=== PATIENT | male | born 1960 | race Caucasian/White ===

== ENCOUNTER → 2022-10-03 16:59 | Outpatient (CLI) | payer BC, SELFPAY ==
--- NOTE | ~2022-10-03 | XR_ITS ---
EXAMINATION: XR hand BI arthritis min 3V DATE: 10/03/2022 17:27 INDICATION: Primary osteoarthritis, right hand. TECHNIQUE: 3 views of right hand and 3 views of left hand were obtained. COMPARISON: None. FINDINGS: RIGHT HAND: Bone alignment is normal. No fracture. There is mild osteoarthritis of first carpometacar pal joint and first, second, and fourth metacarpophalangeal joints. There is moderate osteoarthritis of third metacarpophalangeal joint. There is mild osteoarthritis of most of the interphalangeal joint s. LEFT HAND: Bone alignment is normal. No acute fracture. 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 There is moderate osteoarthritis of first carpometacarpal joint and second and third metacarpophalangeal joints. There is mild osteoarthritis of the other metacarpop halangeal joints and most of the interphalangeal joints. There is moderate osteoarthritis of first in terphalangeal joint. IMPRESSION: 1. Polyarticular osteoarthritis. Reviewed, dictated and finalized at location A. [facility] [employer]
== END ==
PROVIDERS: PCP Family Medicine; Visit Provider Family Medicine
DX: M19.041 Primary osteoarthritis, right hand (principal)
CPT/HCPCS: 73130

== ENCOUNTER 2022-12-23 00:19 | Day surgery (SDC) | payer BC, SELFPAY ==
[2022-12-14 13:03] VITALS: BMI 29.2
[2022-12-23 07:30] VITALS: BMI 31.4
[2022-12-23] MEDS: LACTATED RINGERS 1,000 ML 150 ML IV CONT (07:49)
--- NOTE | 2022-12-23 07:56 | WPDANESEPPF ---
Anes - Initial Pre Proc Eval Procedure: Operation Date: 12/23/22 08:30 Proposed Procedures p Screening Colonoscopy - Kamran Coyle MD Date/Time: 12/23/22 07:56 Surgeon: Kamran Coyle MD Pre Op Diagnosis: neoplasm screening Patient Data Age: 62 Gender: M Height: 1.75 m Weight: 96.7 kg Allergies Allergy/AdvReac Type Severity Reaction Status Date / Time No Known Allergies Allergy Verified 12/14/22 12:59 Home Medications Medication Instructions Recorded Confirmed Type meloxicam 15 mg tablet 15 mg PO DAILY PRN pain #30 tabs 09/29/21 12/14/22 Rx alprazolam 0.25 mg tablet 0.25 mg PO TID PRN anxiety #90 tabs 05/30/22 12/14/22 Rx amlodipine 10 mg tablet 10 mg PO DAILY #90 tabs 06/28/22 12/14/22 Rx lisinopril 20 mg tablet 20 mg PO . q.a.m. #30 tabs 10/03/22 12/14/22 Rx venlafaxine 75 mg capsule,extended 75 mg PO QAM #30 caps 10/03/22 12/14/22 Rx release 24 hr (Effexor XR) sodium,potassium,mag sulfates 17.5 See Rx Instructions PO .COMPLEX 11/23/22 12/14/22 Rx gram-3.13 gram-1.6 gram oral soln #354 mL (Suprep Bowel Prep Kit) Patient hx anesthesia problems: none Family hx anesthesia problems: none Results Review: All pre-operative results and documents have been reviewed as part of the pre-operative evaluation. [facility] Past Medical History Medical History (Updated 10/25/22 @ 07:56 by Tyree Lynne MD) Abnormal fasting glucose (11/23/20) Blood sugar 115 on 11/23/2020. Glucose 92 with hemoglobin A1c 5.2 on 10/15/2022. Arthritis of both hands x-ray of both hands on 10/03/2022 with [id number] diffuse osteoarthritis. Labs on 10/15/2022 with PRABHAKAR negative, RF less than 14, CCP less than 16, uric acid 5.7. No evidence of inflammatory arthritis. BMI 29.0-29.9,adult BMI 30.0-30.9,adult BMI 31.0-31.9,adult Carpal tunnel syndrome, right Chronic anxiety Chronic depression Chronic pain of right knee Colon cancer screening patient reports normal colonoscopy around age 51 with recheck in 10 years. Encounter for prostate cancer screening PSA 1.8 on 10/15/2022. Encounter for wellness examination in adult Essential (primary) hypertension Male erectile dysfunction, unspecified Obesity (BMI 30.0-34.9) Obstructive sleep apnea on CPAP Osteoarthritis of right hand Protein in urine Urinalysis normal on 10/15/2022. Seasonal allergic rhinitis Tobacco use disorder, continuous Vitamin B12 deficiency anemia (09/18/21) level low at 312 with goal greater than 400 on 09/18/2021 Social History Social History (Updated 10/03/22 @ 16:15 by Britney Chinchilla MA) Smoking packs per day: 0.5 Smoking cigarettes per day: 10.0 Years smoked: 30 Smoking pack-years: 15.00 Smoking status: Current every day smoker Tobacco type: cigarettes Alcohol intake: current Drinks per week: 12 Substance use: never Substance use type: does not use Lack of Transportation: No Lack of Food: Never True Current Housing: I Have Housing Concerned About Future Housing: No Difficulty Paying Gas/Electric Bills: No Difficulty Paying for Meds: No Currently Unemployed: No Education: High School Diploma/GED Difficulty w/ Childcare or Family Care: No Living arrangements: other Additional living arrangements comments: With guero Gregory Final PreProcedure Day of Procedure 12/23/22 07:56 Patient weight: obese Heart: regular rate and rhythm Lungs: clear to auscultation Airway: Mallampati scale class II Neurological: alert and oriented Last oral intake: >/= 8 hours ASA classification: III Emergent: no Anesthetic plan: proceed Anesthesia type and monitoring: general GIVS and standard monitoring Results Review: All pre-operative results and documents have been reviewed as part of the pre-operative evaluation. Informed Consent: The patient's anesthetic plan and its attendant risks and benefits were discussed with the patient/family/POA. Questions were solicited and answers provided
--- NOTE | 2022-12-23 08:05 | PM.HPGS ---
History of Present Illness History of Present Illness Consent: Risks, benefits, and alternatives have been discussed and questions answered. Patient agrees to proceed with procedure. Chief complaint: neoplasm screening Narrative: Wood Smiley is a 62 year old male Presents for screening colonoscopy. Patient's current weight appetite and bowel movements are normal. Patient denies abdominal pain. He has had no bleeding. family history is noncontributory. Patient presents today for screening exam. Previous exam 10 years ago was unremarkable. Review of Systems Review of Systems: Review of systems noncontributory. [facility] Past Medical History Medical History (Updated 10/25/22 @ 07:56 by Tyree Lynne MD) Abnormal fasting glucose (11/23/20) Blood sugar 115 on 11/23/2020. Glucose 92 with hemoglobin A1c 5.2 on 10/15/2022. Arthritis of both hands x-ray of both hands on 10/03/2022 with [id number] diffuse osteoarthritis. Labs on 10/15/2022 with PRABHAKAR negative, RF less than 14, CCP less than 16, uric acid 5.7. No evidence of inflammatory arthritis. BMI 29.0-29.9,adult BMI 30.0-30.9,adult BMI 31.0-31.9,adult Carpal tunnel syndrome, right Chronic anxiety Chronic depression Chronic pain of right knee Colon cancer screening patient reports normal colonoscopy around age 51 with recheck in 10 years. Encounter for prostate cancer screening PSA 1.8 on 10/15/2022. Encounter for wellness examination in adult Essential (primary) hypertension Male erectile dysfunction, unspecified Obesity (BMI 30.0-34.9) Obstructive sleep apnea on CPAP Osteoarthritis of right hand Protein in urine Urinalysis normal on 10/15/2022. Seasonal allergic rhinitis Tobacco use disorder, continuous Vitamin B12 deficiency anemia (09/18/21) level low at 312 with goal greater than 400 on 09/18/2021 Social History Social History (Updated 10/03/22 @ 16:15 by Britney Chinchilla MA) Smoking packs per day: 0.5 Smoking cigarettes per day: 10.0 Years smoked: 30 Smoking pack-years: 15.00 Smoking status: Current every day smoker Tobacco type: cigarettes Alcohol intake: current Drinks per week: 12 Substance use: never Substance use type: does not use Lack of Transportation: No Lack of Food: Never True Current Housing: I Have Housing Concerned About Future Housing: No Difficulty Paying Gas/Electric Bills: No Difficulty Paying for Meds: No Currently Unemployed: No Education: High School Diploma/GED Difficulty w/ Childcare or Family Care: No Living arrangements: other Additional living arrangements comments: With sp Meds Home Medications and Allergies Home Medications Medication Instructions Recorded Confirmed Type meloxicam 15 mg tablet 15 mg PO DAILY PRN pain #30 tabs 09/29/21 12/14/22 Rx alprazolam 0.25 mg tablet 0.25 mg PO TID PRN anxiety #90 tabs 05/30/22 12/14/22 Rx amlodipine 10 mg tablet 10 mg PO DAILY #90 tabs 06/28/22 12/14/22 Rx lisinopril 20 mg tablet 20 mg PO . q.a.m. #30 tabs 10/03/22 12/14/22 Rx venlafaxine 75 mg capsule,extended 75 mg PO QAM #30 caps 10/03/22 12/14/22 Rx release 24 hr (Effexor XR) sodium,potassium,mag sulfates 17.5 See Rx Instructions PO .COMPLEX 11/23/22 12/14/22 Rx gram-3.13 gram-1.6 gram oral soln #354 mL (Suprep Bowel Prep Kit) Allergies Allergy/AdvReac Type Severity Reaction Status Date / Time No Known Allergies Allergy Verified 12/14/22 12:59 Exam Narrative: Physical exam reveals patient to be alert. Vital signs stable. HEENT exam is unremarkable. Patient is anicteric. Lungs are clear to auscultation and percussion. Heart is without murmur or extra sounds. Abdomen bowel sounds are present soft nontender with no organomegaly. Digital external rectal exam is normal. Assessment and Plan Assessment and plan (1) Colon cancer screening: Code(s): Z12.11 - Encounter for screening for malignant neoplasm of colon Status:
--- NOTE | 2022-12-23 08:11 | SUR.PREOP ---
Pt. states that bilateral knee replacement was performed in 2020. No Ampicillin given per MD order.
[2022-12-23 08:34] VITALS: BP 112/73; PULSE 78; RESP 15; O2SAT 97
[2022-12-23 08:44] VITALS: BP 116/79; PULSE 71; RESP 21; O2SAT 100
[2022-12-23 08:54] VITALS: BP 133/82; PULSE 61; RESP 17; O2SAT 99
== END 2022-12-23 09:03 | disposition home or self-care (01) ==
PROVIDERS: PCP Family Medicine; Visit Provider Internal Medicine Gastroenterology
PROC: 0DJD8ZZ Inspection of Lower Intestinal Tract, Via Natural or Artificial Opening Endoscopic (ICD-10-PCS; CPT 45378; principal; 2022-12-23 08:30)
DX: Z12.11 Encounter for screening for malignant neoplasm of colon (principal); D12.2 Benign neoplasm of ascending colon; D12.5 Benign neoplasm of sigmoid colon; K64.8 Other hemorrhoids; I10 Essential (primary) hypertension; G47.33 Obstructive sleep apnea (adult) (pediatric); F41.9 Anxiety disorder, unspecified; F32.A Depression, unspecified; F17.210 Nicotine dependence, cigarettes, uncomplicated; E66.9 Obesity, unspecified; Z68.31 Body mass index [BMI] 31.0-31.9, adult
CPT/HCPCS: 45385; 88305; J2704; J7120

== ENCOUNTER → 2023-04-11 16:11 | Outpatient (CLI) | payer BC, SELFPAY ==
--- NOTE | ~2023-04-11 | XR_ITS ---
Left foot Technique: AP, oblique, and lateral views were obtained. Clinical History: Pain Findings: No acute fracture or dislocation is seen. Probable old, healed fracture of the second metat arsal shaft. There is severe osteoarthritis of the first metatarsophalangeal joint, with marked osteo phyte formation. Remaining joint spaces are intact. Soft tissues are unremarkable. Impression: Severe osteoarthritis of the first metatarsophalangeal joint, with marked osteophyte formation hong pedro. Reviewed, dictated and finalized at location M. Impression: Severe osteoarthritis of the first metatarsophalangeal joint, with marked osteo phyte formation present.
== END ==
PROVIDERS: PCP Family Medicine; Visit Provider Family Medicine
DX: M79.672 Pain in left foot (principal); M19.072 Primary osteoarthritis, left ankle and foot
CPT/HCPCS: 73630

== ENCOUNTER 2024-01-12 00:44 | Day surgery (SDC) | payer BC, SELFPAY ==
[2024-01-08 11:42] VITALS: BMI 32.5
--- NOTE | 2024-01-08 11:47 | PC.NURSE ---
Addendum entered by Dc Dyson RN 01/09/24 13:07: Left message on patient's voice mail asking him to address his Meloxicam with Dr Blum office. Original Note: Report to the Outpatient Waiting Room, entrance under the green pavilion located off [facility], at time _0700_ on date _[id number]_. Planned Procedure Time: _0900_. Time changes happen often and if your time is changed the preop area will call you the afternoon before. - You and your visitor will be asked to self-screen and do not enter if you have any COVID symptoms. - A mask is optional within the hospital at this time. Patients may have clear liquids (water, carbonated beverages, clear teas, apple juice) until 3 hours prior to surgery with a maximum of 20 ounces. - No food from midnight until time of surgery Take the following medications with a SIP of water the morning of surgery: ____Amlodipine, Venlafaxine and if needed Alprazolam. DO NOT STOP ANY OF YOUR OTHER PRESCRIPTION MEDICATIONS PRIOR TO SURGERY ?EXCEPT THE FOLLOWING Medications to discontinue per physician ____None Date to take last dose Please no make-up, nail mohawk, hairspray, perfume, deodorant, or body powder the day of surgery. No jewelry (including any body piercings) or valuables the day of surgery, leave them at home. Please take a shower or bath the night before, or the morning of, surgery with an antibacterial soap. Wear comfortable, loose fitting clothing. - Jewelry must be removed prior to entering the operating room. Rings and piercings that are not removed may be cut off. - The hospital will not accept responsibility for valuables. - Please leave all valuables, including medications, at home the day of surgery. If you are going home after surgery, a licensed form setter/driver must drive you home. - NO public transportation without another adult if you receive anesthesia. - We recommend that an adult stay with you for 24 hours following discharge. - We also recommend that you do not drive, make important decision, drink alcoholic beverages, or take any drugs that were not prescribed by your health care provider for at least 24 hours after your discharge time. Follow any additional instructions given to you from your surgeon. If you or anyone in your household have experienced Covid symptoms in the past week, please notify your surgeon or the nurse liaison at the phone number below for possible testing. Telephone instructions given to _Sheri/wife__and asked if any additional questions and then verbalized understanding. Patient advised to call surgeon office or pre surgery nurse liaison [phone] if any additional questions.
--- NOTE | ~2024-01-12 | XR_ITS ---
EXAMINATION: XR surgery orthopedic DATE: 01/12/2024 09:28 INDICATION: Osteoarthritis of left first metatarsophalangeal joint. TECHNIQUE: 3 intraoperative spot fluoroscopic views of left foot were obtained. I was not present. Fl uoroscopy exposure time was 3 seconds. COMPARISON: Left foot radiograph 04/11/2023 FINDINGS: There is severe osteoarthritis of first metatarsophalangeal joint. Images demonstrate resec tion of some osteophytes. IMPRESSION: 1. Severe osteoarthritis of left first metatarsophalangeal joint status post resection of some osteop hytes. Reviewed, dictated and finalized at location A. IMPRESSION: 1. Severe osteoarthritis of left first metatarsophalangeal joint status post re section of some osteophytes.
--- NOTE | 2024-01-12 07:11 | WPDHPUPDATE1 ---
History and Physical Update Update Date/Time: 01/12/24 07:11 History and Physical has been reviewed, including an updated exam of the patient. There are NO changes in the patient's condition. Risks, benefits, and alternatives have been discussed and questions answered. Patient agrees to proceed with procedure.
[2024-01-12 07:37] VITALS: BP 126/84; PULSE 70; RESP 14; TEMP 36.3; O2SAT 98; BMI 32.7
--- NOTE | 2024-01-12 08:30 | WPDANESEPPF ---
Anes - Initial Pre Proc Eval Procedure: Operation Date: 01/12/24 09:00 Proposed Procedures p Cheilectomy First Metatarsophalangeal Joint Left Foot - Johnny Blum Jr., DPM Date/Time: 01/12/24 08:30 Surgeon: Johnny Blum Jr., DPM Pre Op Diagnosis: Arthritis 1st MPJ Left Foot Patient Data Age: 63 Gender: M Height: 1.75 m Weight: 100.5 kg Last Vital Signs Temp 97.3 F L 01/12/24 07:37 Pulse 70 01/12/24 07:37 Resp 14 01/12/24 07:37 BP 126/84 01/12/24 07:37 Pulse Ox 98 01/12/24 07:37 O2 Del Method Room Air 01/12/24 07:37 Allergies Allergy/AdvReac Type Severity Reaction Status Date / Time No Known Allergies Allergy Verified 01/12/24 07:35 Home Medications Medication Instructions Recorded Confirmed Type meloxicam 15 mg tablet 15 mg PO DAILY PRN pain #30 tabs 09/29/21 01/08/24 Rx sildenafil 100 mg tablet (Viagra) 100 mg PO DAILY PRN sexual 04/11/23 01/08/24 Rx activity #30 tabs amlodipine 10 mg tablet 10 mg PO DAILY #90 tabs 07/18/23 01/08/24 Rx alprazolam 0.25 mg tablet 0.25 mg PO TID PRN anxiety #90 tabs 08/14/23 01/08/24 Rx lisinopril 20 mg tablet 20 mg PO . q.a.m. #30 tabs 10/17/23 01/08/24 Rx venlafaxine 75 mg capsule,extended 75 mg PO QAM #30 caps 10/17/23 01/08/24 Rx release 24 hr (Effexor XR) Patient hx anesthesia problems: none Family hx anesthesia problems: none Results Review: All pre-operative results and documents have been reviewed as part of the pre-operative evaluation. [facility] Past Medical History Medical History (Updated 10/25/23 @ 17:17 by Tyree Lynne MD) Abnormal fasting glucose (11/23/20) Blood sugar 115 on 11/23/2020. Glucose 92 with hemoglobin A1c 5.2 on 10/15/2022. Glucose 100 with hemoglobin A1c 5.5 on 10/21/2023. Arthritis of both hands x-ray of both hands on 10/03/2022 with [id number] diffuse osteoarthritis. Labs on 10/15/2022 with PRABHAKAR negative, RF less than 14, CCP less than 16, uric acid 5.7. No evidence of inflammatory arthritis. BMI 29.0-29.9,adult BMI 30.0-30.9,adult BMI 31.0-31.9,adult BMI 33.0-33.9,adult Carpal tunnel syndrome, right Chronic anxiety Chronic depression Chronic pain in left foot Severe osteoarthritis 1st MTP joint with marked osteophyte on x-ray 04/11/2023. Chronic pain of right knee Colon cancer screening patient reports normal colonoscopy around age 51 with recheck in 10 years. Encounter for prostate cancer screening PSA 1.8 on 10/15/2022. PSA 1.89 on 10/21/2023. Encounter for wellness examination in adult Essential (primary) hypertension Male erectile dysfunction, unspecified Total testosterone 401 with free testosterone 36.2 on 10/21/2023. Obesity (BMI 30.0-34.9) Obstructive sleep apnea on CPAP Osteoarthritis of right hand Polyp of colon 2 polyps , tubular adenomas, on colonoscopy 12/23/[address] recheck in [address] Coyle Protein in urine Urinalysis normal on 10/15/2022. Normal urinalysis on 10/21/2023. Seasonal allergic rhinitis Tachycardia (~10/25/23) heart rate 140 and regular 10/25/2023. Tobacco use disorder, continuous 1/2 pack daily Vitamin B12 deficiency anemia (09/18/21) level low at 312 with goal greater than 400 on 09/18/2021. level normal at 407 on 10/21/2023. Social History Social History (Updated 10/03/22 @ 16:15 by Britney Chinchilla MA) Smoking packs per day: 0.5 Smoking cigarettes per day: 10.0 Years smoked: 30 Smoking pack-years: 15.00 Smoking status: Current every day smoker Tobacco type: cigarettes Alcohol intake: current Drinks per week: 10 Substance use: never Substance use type: does not use Lack of Transportation: No Lack of Food: Never True Current Housing: I Have Housing Concerned About Future Housing: No Difficulty Paying Gas/Electric Bills: No Difficulty Paying for Meds: No Currently Unemployed: No Education: High School Diploma/GED Difficulty w/ Childcare or Family Care: No Living arrangements: wit
[2024-01-12] MEDS: ceFAZolin 2 GM/D5W 50 ML 2 GM/50 ML BAG IVPB (08:45)
[2024-01-12] MEDS: LIDOCAINE HCL 2% LOCAL INJ 20 ML VIAL 10 ML INFILTRATE (08:49)
[2024-01-12] MEDS: LACTATED RINGERS 1,000 ML 30 ML IV CONT (09:05)
--- NOTE | 2024-01-12 09:34 | W.PM.PROC2 ---
Procedure Note - Detailed Date of Procedure 01/12/24 Pre-op Diagnosis Arthritis First Metatarsal Phalangeal Joint Left Foot Post-op Diagnosis Same Procedure Performed Cheilectomy first metatarsal phalangeal joint left foot Surgeon Johnny Blum Jr., DPM Anesthesia MAC and Local Indications Painful large bone spurs present to the dorsum of the first metatarsal phalangeal joint Findings Large osteophyte present to the dorsum of the first metatarsal phalangeal joint left foot Description of Procedure PROCEDURE IN DETAIL: Under mild sedation, the patient was brought into the operating room, placed on the operating table in supine position. A pneumatic ankle tourniquet was placed about the patient's right ankle. Following IV sedation with LMA, a local anesthetic block was obtained about the foot and ankle utilizing 20 cc of a 1:1 of 2% Lidocaine plain and 0.5% Marcaine plain followed by 10cc of 2% Lidocaine plain. The foot was then scrubbed, prepped, and draped in the usual aseptic manner. An Esmarch bandage was then used to exsanguinate the patient's foot and the pneumatic ankle tourniquet was then inflated. Surgery began in the following manner: Attention was directed to the dorsal aspect of the 1st metatarsophalangeal joint where there was a large osteophyte noted along the dorsomedial aspect of the joint. The incision was made starting along the central shaft of the 1st metatarsal and extending just proximal to the interphalangeal joint of the hallux. The incision was continued deep down through the subcutaneous tissues using sharp and blunt dissection. All bleeders were cauterized as necessary. At this point, the dissection was continued down to the level of the periosteum and capsular structures overlying the 1st metatarsophalangeal joint. A full length periosteum and capsular incision was made just medial to the extensor hallucis longus tendon. The periosteum and capsular structures were freed from the base of the proximal phalanx as well as the distal 1st metatarsal. At this point, the 1st metatarsophalangeal joint was identified. There was moderate loss of articular cartilage to the dorsal aspect of head of the 1st metatarsal . There was significant broadening and hypertrophy of the 1st metatarsophalangeal joint dorsally medially and laterally with a very large dorsal spur. Utilizing a sagittal bone saw, the hypertrophied 1st metatarsal was resected dorsally, medially, and laterally. A power bur was used to make sure that there were no rough edges and also to further debride the hypertrophic 1st metatarsal. Approximately one third of the dorsal first metatarsal was resected. Next, a rongeur was used to resect all hypertrophic base of the proximal phalanx. Moreover, the wound site was then flushed with copious amounts of sterile saline. Fluoroscopy was adequate resection of the osseous proliferation to the first metatarsal phalangeal joint. Next, the periosteum and capsular structures were reapproximated with 3-0 Vicryl. Next, the subcutaneous structures were reapproximated with 4-0 Vicryl. Next, the skin was reapproximated and coapted utilizing 4-0 Monocryl in running subcuticular suture fashion technique. Upon completion of the procedure, the incision was dressed with Steri-Strips, Adaptic, 4x4s, Kerlix, and Coban. The pneumatic ankle tourniquet was then deflated and a prompt hyperemic response was noted to all digits of the foot. A surgical shoe was then applied to the affected lower extremity. It is important to note that Dr. Blum was present throughout the procedure. The patient did very well with the procedure and the anesthesia. He was transferred to the recovery room with vital signs stable and vascular status intact to all toes of the foot. Following a period of postoperative monitoring, the patient will be discharged home on the following written and oral postoperative instructions: 1. Keep the dressin
--- NOTE | 2024-01-12 09:42 | P.OP_ITS ---
OP note dictated date of surgery. Procedure Note - Detailed Date of Procedure 01/26/24 Pre-op Diagnosis Arthritis 1st MPJ Left Foot Post-op Diagnosis Same Procedure Performed Cheilectomy first metatarsal phalangeal joint left foot Surgeon Johnny Blum Jr., DPM Anesthesia MAC and Local Description of Procedure See op note Estimated Blood Loss 1
[2024-01-12 09:48] VITALS: BP 121/79; PULSE 78; RESP 16; O2SAT 94
[2024-01-12 10:18] VITALS: BP 128/76; PULSE 61; RESP 16
[2024-01-12 10:41] VITALS: BP 127/80; PULSE 65; RESP 16
== END 2024-01-12 11:00 | disposition home or self-care (01) ==
PROVIDERS: PCP Family Medicine; Visit Provider Podiatrist Foot & Ankle Surgery
PROC: (CPT 28289; principal; 2024-01-12 09:00)
DX: M19.072 Primary osteoarthritis, left ankle and foot (principal); I10 Essential (primary) hypertension; F41.9 Anxiety disorder, unspecified; F32.A Depression, unspecified; G47.33 Obstructive sleep apnea (adult) (pediatric); E66.9 Obesity, unspecified; Z68.32 Body mass index [BMI] 32.0-32.9, adult; F17.210 Nicotine dependence, cigarettes, uncomplicated
CPT/HCPCS: 28289; 99199; J0690; J1100; J2250; J2405; J2704; J3010; J7120

== ENCOUNTER 2024-10-07 16:33 | Emergency (ER) | payer BC, SELFPAY ==
[2024-10-07] VITALS (7 sets, daily range): BP systolic 120–161; BP diastolic 89–95; PULSE 96; RESP 19; TEMP 36.7; O2SAT 95–100
--- NOTE | ~2024-10-07 | CT_ITS ---
EXAMINATION: CT abdomen pelvis wo con DATE: 10/07/2024 19:39 INDICATION: R lower back/flank pain TECHNIQUE: Computed tomography (CT) of the abdomen and pelvis was performed without intravenous contr ast. Automated exposure control and iterative reconstruction technique were employed. The dose-length product was 866.01 mGy-cm. COMPARISON: None. FINDINGS: Lower thorax: Coronary artery and mitral annulus calcifications. Calcified paraesophageal lymph node. Liver: Normal. Biliary/Gallbladder: Gallbladder is normal. No bile duct dilation. 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 Otherwise normal. Spleen: Normal. Adrenals:No mass. Kidneys: No suspicious mass, obstructing stone, or hydronephrosis. Bilateral simple renal cysts. GI tract: No small or large bowel dilation. Normal appendix. Mesentery/Peritoneum: No ascites, mass, or free air. Retroperitoneum: No mass. Atherosclerotic calcifications of intra-abdominal arterial vessels. Pelvis: Moderately distended urinary bladder with wall thickening. Prostatomegaly. Soft Tissues: Soft tissues and body wall unremarkable. Bones: No acute osseous finding. Trace retrolisthesis at T12-L1. Multilevel degenerative disc diseas e and facet arthropathy. Multilevel severe bilateral neural foraminal narrowing secondary to degenera tive changes. Severe central canal narrowing at L3-4 secondary to degenerative disc ligament and face t change. IMPRESSION: Cystitis versus chronic urinary bladder wall thickening from outlet obstruction. Otherwise, no acute abdominopelvic process detected. 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 Reviewed, dictated and finalized at location K. [employer]ING [employer]ACH[employer] IMPRESSION: Cystitis versus chronic urinary bladder wall thickening from outlet obstruction . Otherwise, no acute abdominopelvic process detected. 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
--- NOTE | ~2024-10-07 | XR_ITS ---
EXAMINATION: XR chest 2V Exam Date/Time: 10/07/2024 17:07 CT TECHNICIAN HISTORY: cp Comparison: None. RESULT: Lines, tubes, and devices: None. Lungs and pleura: Clear. Cardiomediastinal silhouette: Unremarkable. Other: No acute osseous or upper abdominal finding. IMPRESSION: No acute cardiopulmonary process. Reviewed, dictated and finalized at location K. TECHNICIAN
--- OUTSIDE RECORDS SUMMARY | 2024-10-07 16:38 | XMS_ITS | Referral Summary ---
Author Organization [facility] Address [address] [place] [address] Care Team Providers Care Service Delivery Manager Name Role Phone Tyree Lynne MD Primary Care Provider [phone] Allergies Active Allergy Reactions Criticality Noted Date Comments Aripiprazole Other (See comments) Reaction: THROAT TIGHTNESS Medications erythromycin (ILOTYCIN) ophthalmic ointment Place 1/2 inch ribbon in left eye four times a day. 3.5 g 9 Active Additional Information Patient not taking.Reported on 05/22/2024 venlafaxine XR (EFFEXOR-XR) 75 mg 24 hr capsule Take 1 capsule (75 mg total) by mouth every morning 4 Active lisinopriL (PRINIVIL,ZESTR IL) 20 mg tablet Take 1 tablet (20 mg total) by mouth every morning 4 Active amLODIPine (NORVASC) 10 mg tablet Take 1 tablet (10 mg total) by mouth daily 4 Active ALPRAZolam (XANAX) 0.25 mg tablet TAKE 1 TABLET BY MOUTH THREE TIMES A DAY NEEDED FOR ANXIETY 4 Active Active Problems No known active problems Immunizations Name Administration Dates Next Due Tdap 08/25/2019 Social History Tobacco Use Types Packs/Day Years Used Date Smoking Tobacco: Every Day Cigarettes Smokeless Tobacco: Never Tobacco Cessation:Ready to Q uit: Not Asked; Counseling Given: Not Answered Alcohol Use Standard Drinks/Week Comments Yes 12 (1 standard drink = 0.6 oz pu re alcohol) Personal Safety Answer Date Recorded Getting School Help Needed Not on file 11/17 Sex and Gender Information Value Date Recorded Sex Assigned at Not on file 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 Gender Identity Not on file Sexual Orientation Not on file Last Filed Vital Signs Vital Sign Reading Time Taken Comments Blood Pressure 144/80 05/22/2024 11:13 AM CDT Pulse 88 05/22/2024 11:13 AM CDT Temperature 37 ??C (98.6 ??F) 05/22/2024 11:13 AM CDT Respiratory Rate 18 05/22/2024 11:13 AM CDT Oxygen Saturation 96% 05/22/2024 11:13 AM CDT Inhaled Oxygen Concentration - - Weight 95.3 kg (210 lb) 05/22/2024 11:13 AM CDT Height 175.3 cm (5' 9 ) 05/22/2024 11:13 AM CDT Body Mass Index 31.01 05/22/2024 11:13 AM CDT Plan of Treatment Not on file Insurance [facility] Member Subscriber Plan / Payer (Ef fective 2019-Present) Name:Wood Smiley Relation to Subscriber:Self Name:Wood Smiley Payer ID:[id number] (NAIC) Type: ALLIANCE Address: [address] [place] [id number] [facility] [employer] [place] [employer] [place] Care Teams Service Delivery Manager Relationship Specialty Start Date End Date Tyree Lynne MD [address] [address] PCP - General 08/25/19
--- OUTSIDE RECORDS SUMMARY | 2024-10-07 16:38 | XMS_ITS | CONTINUITY OF CARE DOCUMENT ---
Author Name german tjana Address Unknown Organization [facility] Address [address] [place] [address] Phone [phone] Care Team Providers Care Microfiche Duplicator Name Role Phone Montrell BANEGAS, Jennifer Unavailable BELLE JAMA MD Unavailable [phone] BELLE JAMA MD Unavailable [phone] INSURANCE PROVIDERS Payer name Policy type / Coverage type [place] red green party ID [facility] Blue [facility] [id number]
--- OUTSIDE RECORDS SUMMARY | 2024-10-07 16:38 | XMS_ITS | Encounter Summary ---
Author Organization [facility] Address [address] [place] [address] Phone Care Team Providers Care Program Director/Morning Show Host Name Role Phone Tyree Lynne MD Primary Care Provider [phone] Encounter Details Date Type Department Care Team (Late st Contact Info) Description 08/25/2019 Ophth Exam [facility] Ophthalmology [address] [place] [address] [address] [place] [id number] Christophe Arthur MD [address] [place] [address] Social History Tobacco Use Types Packs/Day Years Used Date Smoking Tobacco: Every Day Cigarettes Smokeless Tobacco: Never Alcohol Use Standard Drinks/Week Comments Yes 12 (1 standard drink = 0.6 oz pu re alcohol) Sex and Gender Information Value Date Recorded Sex Assigned at Not on file 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 Gender Identity Not on file Sexual Orientation Not on file documented as of this encounter Plan of Treatment Not on file documented as of this encounter Visit Diagnoses Not on filedocumented in this encounter Eye Exam External Exam Right eye Left eye External Normal reactive ptosis Slit Lamp Exam Right eye Left eye Lids/Lashes Normal see above Conjunctiva/Sclera White and quiet 1+ diffuse in jection Cornea Clear black rim of str omal implanted device around pupillar axis; 0.5x0.5mm metaillic foreign body with underlying and surrounding infiltrate superonasally at 10 o'clock outside of pupillary axis and outside of implant rim, appears 30% through corneal stroma; surrounding MCE Anterior Chamber Deep and quiet trace cell, no hypopyon Iris Round and reactive round, minima lly reactive Lens Clear tr NS Vitreous Normal Normal Fundus Exam Right eye Left eye Disc Normal Normal C/D Ratio 0.4 0.4 Macula Normal Normal Vessels Normal Normal Periphery Normal Normal difficult view OS 2/2 corneal implant Care Teams Program Director/Morning Show Host Relationship Specialty Start Date End Date Tyree Lynne MD [id number] [address] PCP - General 08/25/19 documented as of this encounter
--- OUTSIDE RECORDS SUMMARY | 2024-10-07 16:38 | XMS_ITS | Continuity of Care Document ---
Author Organization [facility] Address [address] [place] [address] [address] [place] [address] Phone Care Team Providers Care Licensed Midwife Name Role Phone Benja Steinberg Unavailable Unavailable Advance Directives Directive Yes / No Effective Date File Name No Information Encounters Encounter Description Practice Location Reason(s) For Visit Diagnoses Date Provider Providers Copied on Encounter [facility], [id number] [place] [address] [address], [place], [place], [id number], [place] tel:[phone] [facility] [place] No Information Oct-0 9-200 0 Xandersy Edward. [address] , [address], [place], [address], [place]. tel:[phone] Family History Family Member Type Diagnosis Age At Onset No Information Payers Payer name Insurance type Covered green party ID Authoriza tion(s) [employer] SOI CI [id number] Social History Type Description Quantity Date Captured Comments Sex Male Smoking Status No Information Chief Complaint And Reason For Visit No Information Reason For Referral Reason For Referral No Information History Of Present Illness Encounter Date Complaint History Of Prese nt Illness No Information Functional Status Date Functional Assessmen t No Information Instructions Date Instruction Additional Infor mation No Information Assessments Type Assessment Date No Information Patient Care Teams Name Effective Dates (start - stop) Status Members No Information
--- OUTSIDE RECORDS SUMMARY | 2024-10-07 16:38 | XMS_ITS | Clinical Summary ---
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 Gender Identity Not on file Sexual Orientation Not on file Obstetrics History Last Filed Vital Signs Vital Sign Reading [...] 05/22/2024 11:13 AM CDT Plan of Treatment Health Maintenance Due Date Last Done Comments Colon Cancer Screening-Colonoscopy 1961 Depression Screening 1961 Hepatitis C Screening 1961 Prostate Cancer Screening-PSA 1961 Pneumococcal vaccine <65 (1 of 2 - PCV) 1967 Hepatitis B Screening 1979 Regular Well Visit/Exam 18-64 1979 Covid-19 Vaccine (2023-2 5 season) 2024 07/13/2023, 12/30/2022, 04/24/2022, Additional history exists Influenza Vaccine (#1) 2024 , 04/24/2022, 06/27/2021, Additional history exists DTaP/Tdap/Td Vaccine (2 - Td or Tdap) 08/25/2029 08/25/2019 Zoster Vaccine Completed 09/11/2022, 04/24/2022 Insurance [facility] ACCESS BLUE ACCESS [place] Care Teams Patternmaker Hand Relationship Specialty Start Date End Date Tyree Lynne MD [email or web address] [address] PCP - General 08/25/19
--- OUTSIDE RECORDS SUMMARY | 2024-10-07 16:39 | XMS_ITS | Referral Summary ---
Author Organization [facility] Address [address] [place] [address] Care Team Providers Care Candy Waffle Assembler Name Role Phone Unavailable Primary Care Provider Unavailabl e Source Comments [facility],non-owned Affiliates and Associated Physician Practices is amultiple site organization consisting of ambulatory clinics and hospital sitesin [place], [place], [place] and [place]. This disclosure is being madepursuant to the Care Everywhere program and may not contain all information available regarding this patient. Last updated 18.[facility] [employer] Allergies No known active allergies Medications * Be aware that medications may not be up to date on this document. Alwaysverify current medications with the patient. Medication Sig Dispensed Refills Start Date End Date Status amLODIPine (NORVASC) 5 MG tablet amlodipine 5 mg tablet TAKE 1 TABLET BY MOUTH ONCE DAILY Active Social History Tobacco Use Types Packs/Day Years Used Date Smoking Tobacco: Every Day Cigarettes 1 20 Smokeless Tobacco: Never Sex and Gender Information Value Date Recorded Sex Assigned at Not on file Gender Identity Not on file Sexual Orientation Not on file Last Filed Vital Signs Vital Sign Reading Time Taken Comments Blood Pressure 156/88 08/23/2019 5:09 PM SECURITY CONSULTANT Pulse 100 08/23/2019 5:09 PM SECURITY CONSULTANT Temperature 36.9 ??C (98.4 ??F) 08/23/2019 5:09 PM CS T Respiratory Rate 16 08/23/2019 5:09 PM SECURITY CONSULTANT Oxygen Saturation 98% 08/23/2019 5:09 PM SECURITY CONSULTANT Inhaled Oxygen Concentration - - Weight 90.7 kg (200 lb) 08/23/2019 5:09 PM SECURITY CONSULTANT Height 175.3 cm (5' 9 ) 08/23/2019 5:09 PM SECURITY CONSULTANT Body Mass Index 29.53 08/23/2019 5:09 PM SECURITY CONSULTANT Plan of Treatment Not on file
--- OUTSIDE RECORDS SUMMARY | 2024-10-07 16:39 | XMS_ITS | Patient Health Summary ---
Author Organization [facility] [employer] Address [address] [place] [address] Care Team Providers Care Quality Control Microbiologist Name Role Phone Unavailable Primary Care Provider Unavailabl e Note from [facility],non-owned Affiliates and Associated Physician Practices is amultiple site organization consisting of ambulatory clinics and hospital sitesin [place], [place], [place] and [place]. This disclosure is being madepursuant to the Care Everywhere program and may not contain all information available regarding this patient. Last updated 18.[facility] [employer] Allergies No known active allergies Medications * Be aware that medications may not be up to date on this document. Alwaysverify current medications with the patient. * amLODIPine (NORVASC) 5 MG tablet amlodipine 5 mg tablet TAKE 1 TABLET BY MOUTH ONCE DAILY Social History Tobacco Use Types Packs/Day Years Used Date Smoking Tobacco: Every Day Cigarettes 1 20 Smokeless Tobacco: Never Sex and Gender Information Value Date Recorded Sex Assigned at Not on file Gender Identity Not on file Sexual Orientation Not on file Last Filed Vital Signs Vital Sign Reading Time Taken Comments Blood Pressure 156/88 08/23/2019 5:09 PM BED CONTROL SPECIALIST Pulse 100 08/23/2019 5:09 PM BED CONTROL SPECIALIST Temperature 36.9 ??C (98.4 ??F) 08/23/2019 5:09 PM CS T Respiratory Rate 16 08/23/2019 5:09 PM BED CONTROL SPECIALIST Oxygen Saturation 98% 08/23/2019 5:09 PM BED CONTROL SPECIALIST Inhaled Oxygen Concentration - - Weight 90.7 kg (200 lb) 08/23/2019 5:09 PM BED CONTROL SPECIALIST Height 175.3 cm (5' 9 ) 08/23/2019 5:09 PM BED CONTROL SPECIALIST Body Mass Index 29.53 08/23/2019 5:09 PM BED CONTROL SPECIALIST
--- OUTSIDE RECORDS SUMMARY | 2024-10-07 16:39 | XMS_ITS | Clinical Summary ---
Author Organization [facility] [employer] Address [address] [place] [address] Care Team Providers Care Microstrategy Bi Developer Name Role Phone Unavailable Primary Care Provider Unavailabl e Source Comments [facility],non-owned Affiliates and Associated Physician Practices is amultiple site organization consisting of ambulatory clinics and hospital sitesin [place], [place]. This disclosure is being madepursuant to the Care Everywhere program and may not contain all information available regarding this patient. Last updated 18.[facility] [employer] Allergies No known active allergies Medications * [...] Comments Blood Pressure 156/88 08/23/2019 5:09 PM CONFIGURATION MANAGEMENT ADVISOR Pulse 100 08/23/2019 5:09 PM CONFIGURATION MANAGEMENT ADVISOR Temperature 36.9 ??C (98.4 ??F) 08/23/2019 5:09 PM CS T Respiratory Rate 16 08/23/2019 5:09 PM CONFIGURATION MANAGEMENT ADVISOR Oxygen Saturation 98% 08/23/2019 5:09 PM CONFIGURATION MANAGEMENT ADVISOR Inhaled Oxygen Concentration - - Weight 90.7 kg (200 lb) 08/23/2019 5:09 PM CONFIGURATION MANAGEMENT ADVISOR Height 175.3 cm (5' 9 ) 08/23/2019 5:09 PM CONFIGURATION MANAGEMENT ADVISOR Body Mass Index 29.53 08/23/2019 5:09 PM CONFIGURATION MANAGEMENT ADVISOR Plan of Treatment Health Maintenance Due Date Last Done Comments TONO (AGES 45-75) - COL ON CA SCREENING 1961 COLON MONITORING 1961 COLONOSCOPY - COLON CA SCREENING 1961 CT COLONOGRAPHY - COLON CA SCREENING 1961 Colorectal Cancer Screening 1961 FIT - COLON CA SCREENING 1961 FLEX SIG - COLON CA SCREENING 1961 LIPID TESTING 1961 HIV SCREENING 1976 HEPATITIS C SCREENING 06/19/1979 DTAP/TDAP/TD VACCINES (1 - Tdap) 1980 PNEUMOCOCCAL VACCINE 50+ (1 of 2 - PCV) 1980 PNEUMOCOCCAL VACCINE (1 of 2 - PCV) 1980 ZOSTER VACCINE (1 of 2) 2011 SCREENING FOR DIABETES 08/23/2019 COVID-19 VACCINE ( - 2023-2 5 season) 2024 INFLUENZA VACCINE (#1) 2024 DEPRESSION SCREENING 09/04/2024 Respiratory Syncytial Virus (RSV) Vaccine Pt: or over 60 yrs (1 - 1-dose 75+ series) 2036 HEPATITIS B VACCINE Aged Out No longe r eligible based on patient's age to complete this topic HIB VACCINE Aged Out No longer eligi ble based on patient's age to complete this topic HPV VACCINE Aged Out No longer eligi ble based on patient's age to complete this topic MENINGOCOCCAL (Group B) VACCINE Aged Out No longer eligible based on patient's age to complete this topic MENINGOCOCCAL VACCINE Aged Out No andre yisel eligible based on patient's age to complete this topic
--- NOTE | 2024-10-07 19:03 | ED.BACK ---
HPI - Back Pain/Injury General Chief Complaint: Back Pain/Injury <JOSHUA Osman Last Filed: 10/07/24 19:11> Stated Complaint: back pain <JOSHUA Osman Last Filed: 10/07/24 19:11> Time Seen by Provider: 10/07/24 19:03 <JOSHUA Osman Last Filed: 10/07/24 19:11> Focused HPI: Patient is a 64-year-old male who presents the ED with report of right lower back pain. Patient reports he has had pain throughout his right lower back for the last few weeks. States it was mild at 1st and he was still able to perform his usual activities. States today at work he had to perform a different job and the pain became significantly worse. Pain does radiate slightly into his right leg. He was prescribed prednisone recently by his PCP into this earlier without relief. Has not taken anything further for the pain. Denies numbness in his legs, saddle anesthesia, bowel or bladder incontinence, dysuria, hematuria, abdominal pain, history of kidney stones. GENERAL: Mildly uncomfortable-appearing, well-nourished, and in no acute distress. HEAD: Normocephalic, atraumatic. CHEST: Clear to auscultation. ?No respiratory distress. HEART: Regular rate and rhythm.? MSK: TTP in R lumbosacral region. No significant midline spinal tenderness. Sensation intact. NEURO: ?Alert and oriented x3. Patient screened in triage and initial orders placed.? ?Additional care and disposition to be based upon?diagnostic testing and treatment. <JOSHUA Osman Last Filed: 10/07/24 19:11> Source: patient <JOSHUA Osman Last Filed: 10/07/24 19:11> Mode of arrival: ambulatory <JOSHUA Osman Last Filed: 10/07/24 19:11> Limitations: no limitations <JOSHUA Osman Last Filed: 10/07/24 19:11> History of Present Illness HPI Narrative: Agree with HPI. Back pain over last week worsening at work today. Has not tried any pain medications. Start on prednisone. <Erik Lennon MD - Last Filed: 10/07/24 21:33> Related Data Allergies/Adverse Reactions: Allergies Allergy/AdvReac Type Severity Reaction Status Date / Time No Known Allergies Allergy Verified 01/12/24 07:35 <Jeanie Grijalva PA-C - Last Filed: 10/07/24 19:11> Review of Systems Review of Systems: All systems reviewed & are unremarkable except as noted in HPI and below <Erik Lennon MD - Last Filed: 10/07/24 21:33> Constitutional: Constitutional: Reports no additional constitutional complaints <Erik Lennon MD - Last Filed: 10/07/24 21:33> Cardiovascular: Cardiovascular: Reports no additional cardiovascular complaints <Erik Lennon MD - Last Filed: 10/07/24 21:33> Respiratory: Respiratory: Reports no additional respiratory complaints <Erik Lennon MD - Last Filed: 10/07/24 21:33> Genitourinary: Genitourinary: Reports no additional male genitourinary complaints <Erik Lennon MD - Last Filed: 10/07/24 21:33> Musculoskeletal: Musculoskeletal: Reports no additional musculoskeletal complaints <Erik Lennon MD - Last Filed: 10/07/24 21:33> [facility] Past Medical History Medical History: Medical History (Updated 10/07/24 @ 21:31 by Erik Lennon MD) Chronic low back pain without sciatica Eczema feet BMI 33.0-33.9,adult Tachycardia (~10/25/23) heart rate 140 and regular 10/25/2023. Chronic pain in left foot treated surgically 01/12/2024. 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 Polyp of colon 2 polyps , tubular adenomas, on colonoscopy 12/23/[address]22 with recheck in [address] Coyle Chronic depression Arthritis of both hands x-ray of both hands on 10/03/2022 with [id number] diffuse osteoarthritis. Labs on 10/15/2022 with PRABHAKAR negative, RF less than 14, CCP less than 16, uric acid 5.7. No evidence of inflammatory arthritis. Obesity (BMI 30.0-34.9) Colon cancer screening patient reports normal colonoscopy around age 51 with recheck in 10 years. Vitamin B12 deficiency anemia (09/18/21) level low at 312 with goal greater than 400 on 09/18/2021. level normal at 407 on 10/21/2023. BMI 31.0-31.9,adult Carpal tunnel syndrome, right Osteoarthritis of right hand BMI 30.0-30.9,adult Abnormal fasting glucose (11/23/20) Blood sugar 115 on 11/23/2020. Glucose 92 with hemoglobin A1c 5.2 on 10/15/2022. Glucose 100 with hemoglobin A1c 5.5 on 10/21/2023. BMI 29.0-29.9,adult Protein in urine Urinalysis normal on 10/15/2022. Normal urinalysis on 10/21/2023. Encounter for wellness examination in adult Obstructive sleep apnea on CPAP Seasonal allergic rhinitis Chronic anxiety Tobacco use disorder, continuous 1/2 pack daily Encounter for prostate cancer screening PSA 1.8 on 10/15/2022. PSA 1.89 on 10/21/2023. Male erectile dysfunction, unspecified Total testosterone 401 with free testosterone 36.2 on 10/21/2023. Chronic pain of right knee Essential (primary) hypertension <JOSHUA Osman Last Filed: 10/07/24 19:11> Social History Social History: Social History Smoking packs per day: 0.5 Smoking cigarettes per day: 10.0 Years smoked: 30 Smoking pack-years: 15.00 Smoking status: Current every day smoker Tobacco type: cigarettes Alcohol intake: current Drinks per week: 10 Substance use: never Substance use type: does not use Lack of Transportation: No Lack of Food: Never True Current Housing: I Have Housing Concerned About Future Housing: No Difficulty Paying Gas/Electric Bills: No Difficulty Paying for Meds: No Currently Unemployed: No Education: High School Diploma/GED Difficulty w/ Childcare or Family Care: No Living arrangements: with family Additional living arrangements comments: With sp Spiritual care concerns: No <Jeanie Grijalva PA-C - Last Filed: 10/07/24 19:11> Exam Narrative: GENERAL: Well-appearing, well-nourished, and in no acute distress. HEAD: Normocephalic, atraumatic. ENT: Mucous membranes moist. CHEST: Clear to auscultation. No respiratory distress. HEART: Regular rate and rhythm. Normal peripheral pulses. ABDOMEN: Soft, nontender, nondistended. Back: Right paraspinal muscle tenderness near L4. No midline tenderness the T/L-spine. No CVA tenderness. EXTREMITIES: Normal range of motion. No edema. SKIN: Warm, dry, no rash. NEURO: Alert and oriented x3. PSYCH: Normal mood and affect. <Erik Lennon MD - Last Filed: 10/07/24 21:33> Course Course Emergency Course: Patient informed of lab and imaging results. Appropriate for discharge home. Will start on muscle relaxers. Received Toradol here. <Erik Lennon MD - Last Filed: 10/07/24 21:33> Vital Signs Vital signs: Vital Signs Temperature 98.0 F 10/07/24 17:01 Pulse Rate 96 10/07/24 17:01 Respiratory Rate 19 10/07/24 17:01 Blood Pressure 120/89 10/07/24 17:01 Pulse Oximetry 100 10/07/24 17:01 Temperature 98.0 F 10/07/24 17:01 Pulse Rate 96 10/07/24 17:01 Respiratory Rate 19 10/07/24 17:01 Blood Pressure 120/89 10/07/24 17:01 Pulse Oximetry 100 10/07/24 17:01 <Jeanie Grijalva PA-C - Last Filed: 10/07/24 19:11> Vital Signs Temperature 98.0 F 10/07/24 17:01 Pulse Rate 96 10/07/24 17:01 Respiratory Rate 19 10/07/24 17:01 Blood Pressure 120/89 10/07/24 17:01 Pulse Oximetry 100 10/07/24 17:01 Temperature 98.0 F 10/07/24 17:01 Pulse Rate 96 10/07/24 17:01 Respiratory Rate 19 10/07/24 17:01 Blood Pressure 120/89 10/07/24 17:01 Pulse Oximetry 100 10/07/24 17:01 <Erik Lennon MD - Last Filed: 10/07/24 21:33> MDM - Back Pain/Injury MDM Narrative Medical decision making narrative: MSE by EMILIANO in triage. <Jeanie Grijalva PA-C - Last Filed: 10/07/24 19:11> Lab Data Result diagrams: 10/07/24 20:54 10/07/24 20:54 <Jeanie Grijalva PA-C - Last Filed: 10/07/24 19:11> Labs: Lab Results 10/07/24 Range/Units 20:54 WBC 6.6 (4.5-10.0) K/mm3 RBC 4.73 (4.6-6.20) M/mm3 Hgb 14.9 (14.0-18.0) g/dL Hct 43.3 (42.0-52.0) % MCV 91.5 (80-100) fl MCH 31.5 (26-34) pg MCHC 34.4 (32-36) g/dl RDW 13.4 (11.5-14.5) % Plt Count 238 (150-375) k/mm3 MPV 8.9 (7.4-10.4) fl Immature Gran % (Auto) 0.2 (0-0.5) % Neut % (Auto) 90.6 H (45.5-73.1) % Lymph % (Auto) 5.9 L (18.3-44.2) % [place] % (Auto) 3.0 (2.6-8.5) % Eos % (Auto) 0.0 (0-4.4) % Baso % (Auto) 0.3 (0.2-1.2) % Lymph # (Auto) 0.39 L (0.9-3.2) K/mm3 [place] # (Auto) 0.2 (0.1-0.6) K/mm3 Eos # (Auto) 0.0 (0-0.3) K/mm3 Baso # (Auto) 0.0 (0.0-0.1) K/mm3 Abs Immat Gran (auto) 0.01 (0.00-0.031) K/mm3 Absolute Neuts (auto) 6.0 (1.3-6.7) K/mm3 Absolute Nucleated RBC 0.000 (0.0-0.012) K/mm3 Nucleated RBC % 0.0 (0.0-0.2) % Sodium 134 L (137-145) mmol/L Potassium 4.4 (3.4-5.0) mmol/L Chloride 100 (98-107) mmol/L Carbon Dioxide 23 (22-30) mmol/L Anion Gap 11 (4-12) mmol/L BUN 13 (9-20) mg/dL Creatinine 0.78 (0.7-1.3) mg/dL Estim Creat Clear Calc 98 ml/min Estimated GFR > 60 (59 - ) Glucose 126 H (65-110) mg/dL Calcium 9.5 (8.4-10.2) mg/dL Total Bilirubin 0.6 (0.2-1.3) mg/dL AST 30 (17-59) U/L ALT 27 (6-50) U/L Alkaline Phosphatase 106 (38-126) U/L Total Protein 8.0 (6.3-8.2) g/dL Albumin 4.6 (3.5-5.1) g/dL Urine Color Yellow (Yellow) Urine Appearance Clear (Clear) Urine pH 6.5 (5.0-9.0) Ur Specific [place] 1.010 (1.001-1.035) Urine Protein 2+ H (Negative) mg/dL Urine Glucose (UA) Negative (Negative) mg/dL Urine Ketones Negative (Negative) mg/dL Ur Blood (Man) Negative (Negative) Urine Nitrate Negative (Negative) Urine Bilirubin Negative (Negative) Urine Urobilinogen 0.2 (<2.0) mg/dL Leukocyte Esterase Rfl Negative (Negative) ROXIE/UL Urine RBC 0-2 (0-2) /hpf Urine WBC 0-5 (0-3) /hpf Ur Squamous Epith Cells None seen (Few) /hpf Urine Bacteria None seen /hpf Urine Casts 0-2 <Jeanie Grijalva PA-C - Last Filed: 10/07/24 19:11> Lab Results 10/07/24 Range/Units 20:54 WBC 6.6 (4.5-10.0) K/mm3 RBC 4.73 (4.6-6.20) M/mm3 Hgb 14.9 (14.0-18.0) g/dL Hct 43.3 (42.0-52.0) % MCV 91.5 (80-100) fl MCH 31.5 (26-34) pg MCHC 34.4 (32-36) g/dl RDW 13.4 (11.5-14.5) % Plt Count 238 (150-375) k/mm3 MPV 8.9 (7.4-10.4) fl Immature Gran % (Auto) 0.2 (0-0.5) % Neut % (Auto) 90.6 H (45.5-73.1) % Lymph % (Auto) 5.9 L (18.3-44.2) % [place] % (Auto) 3.0 (2.6-8.5) % Eos % (Auto) 0.0 (0-4.4) % Baso % (Auto) 0.3 (0.2-1.2) % Lymph # (Auto) 0.39 L (0.9-3.2) K/mm3 [place] # (Auto) 0.2 (0.1-0.6) K/mm3 Eos # (Auto) 0.0 (0-0.3) K/mm3 Baso # (Auto) 0.0 (0.0-0.1) K/mm3 Abs Immat Gran (auto) 0.01 (0.00-0.031) K/mm3 Absolute Neuts (auto) 6.0 (1.3-6.7) K/mm3 Absolute Nucleated RBC 0.000 (0.0-0.012) K/mm3 Nucleated RBC % 0.0 (0.0-0.2) % Sodium 134 L (137-145) mmol/L Potassium 4.4 (3.4-5.0) mmol/L Chloride 100 (98-107) mmol/L Carbon Dioxide 23 (22-30) mmol/L Anion Gap 11 (4-12) mmol/L BUN 13 (9-20) mg/dL Creatinine 0.78 (0.7-1.3) mg/dL Estim Creat Clear Calc 98 ml/min Estimated GFR > 60 (59 - ) Glucose 126 H (65-110) mg/dL Calcium 9.5 (8.4-10.2) mg/dL Total Bilirubin 0.6 (0.2-1.3) mg/dL AST 30 (17-59) U/L ALT 27 (6-50) U/L Alkaline Phosphatase 106 (38-126) U/L Total Protein 8.0 (6.3-8.2) g/dL Albumin 4.6 (3.5-5.1) g/dL Urine Color Yellow (Yellow) Urine Appearance Clear (Clear) Urine pH 6.5 (5.0-9.0) Ur Specific [place] 1.010 (1.001-1.035) Urine Protein 2+ H (Negative) mg/dL Urine Glucose (UA) Negative (Negative) mg/dL Urine Ketones Negative (Negative) mg/dL Ur Blood (Man) Negative (Negative) Urine Nitrate Negative (Negative) Urine Bilirubin Negative (Negative) Urine Urobilinogen 0.2 (<2.0) mg/dL Leukocyte Esterase Rfl Negative (Negative) ROXIE/UL Urine RBC 0-2 (0-2) /hpf Urine WBC 0-5 (0-3) /hpf Ur Squamous Epith Cells None seen (Few) /hpf Urine Bacteria None seen /hpf Urine Casts 0-2 <Erik Lennon MD - Last Filed: 10/07/24 21:33> Imaging Data Radiologist's impression: ITS Impressions Chest X-Ray 10/07/24 17:26 IMPRESSION: No acute cardiopulmonary process. Abdomen/Pelvis CT 10/07/24 19:53 IMPRESSION: Cystitis versus chronic urinary bladder wall thickening from outlet obstruction. Otherwise, no acute abdominopelvic process detected. 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 <Erik Lennon MD - Last Filed: 10/07/24 21:33> Discharge Plan Discharge Clinical Impression: Low back strain <Jeanie Grijalva PA-C - Last Filed: 10/07/24 19:11> Patient Disposition: Home, Self-Care <Jeanie Grijalva PA-C - Last Filed: 10/07/24 19:11> Condition: Stable <Jeanie Grijalva PA-C - Last Filed: 10/07/24 19:11> Instructions: Acute Low Back Pain (ED) <Jeanie Grijalva PA-C - Last Filed: 10/07/24 19:11> Additional Instructions: Please return to the emergency department if you develop severe pain that is not controlled by pain medications or if you are unable to walk because of pain or weakness. Return to the emergency department immediately if you develop fevers, loss of bowel or bladder control (dribbling of urine or having accidents you wouldn't normally have), inability to urinate, numbness of your genital or anal area, or weakness/numbness of your legs or arms as these could all be signs of a serious medical emergency. <Jeanie Grijalva PA-C - Last Filed: 10/07/24 19:11> Patient Language: Hungarian <Jeanie Grijalva PA-C - Last Filed: 10/07/24 19:11> Prescriptions: New cyclobenzaprine 10 mg tablet 10 mg PO TID PRN (Reason: muscle spasm) Qty: 20 0RF No Action triamcinolone acetonide 0.5 % cream 1 applic topical BID Qty: 30 5RF Rx Instructions: apply to rash on feet twice daily for up to 2 weeks at a time as needed for eczema meloxicam 15 mg tablet 15 mg PO DAILY PRN (Reason: pain) Qty: 30 11RF sildenafil [Viagra] 100 mg tablet 100 mg PO DAILY PRN (Reason: sexual activity) Qty: 30 11RF Rx Instructions: administer 30 minutes to 4 hours before activity [place] pay with good Rx discount lisinopril 20 mg tablet 20 mg PO . q.a.m. Qty: 30 11RF venlafaxine [Effexor XR] 75 mg capsule,extended release 24hr 75 mg PO QAM Qty: 30 11RF alprazolam 0.25 mg tablet 0.25 mg PO TID PRN (Reason: anxiety) Qty: 90 5RF amlodipine 10 mg tablet 10 mg PO DAILY Qty: 90 3RF prednisone 20 mg tablet 20 mg PO . q.a.m. Qty: 7 0RF Rx Instructions: hold meloxicam while on prednisone <Jeanie Grijalva PA-C - Last Filed: 10/07/24 19:11> Follow-up/Referrals: Tyree Lynne MD [Primary Care Provider] - 1 Week <JOSHUA Osman Last Filed: 10/07/24 19:11>
--- OUTSIDE RECORDS SUMMARY | 2024-10-07 20:38 | XMS_ITS | Clinical Summary ---
Author Organization [facility] [employer] Address [address] [place] [address] Care Team Providers Care Beet Flumer Name Role Phone Unavailable Primary Care Provider Unavailabl e Source Comments [facility],non-owned Affiliates and Associated Physician Practices is amultiple site organization consisting of ambulatory clinics and hospital sitesin [place], [place], [place] and [place]. This disclosure is being madepursuant to the Care Everywhere program and may not contain all information available regarding this patient. Last updated 18.[facility] [employer] Allergies No known active allergies Medications * [...] Comments Blood Pressure 156/88 08/23/2019 5:09 PM SHAFT MECHANIC Pulse 100 08/23/2019 5:09 PM SHAFT MECHANIC Temperature 36.9 ??C (98.4 ??F) 08/23/2019 5:09 PM CS T Respiratory Rate 16 08/23/2019 5:09 PM SHAFT MECHANIC Oxygen Saturation 98% 08/23/2019 5:09 PM SHAFT MECHANIC Inhaled Oxygen Concentration - - Weight 90.7 kg (200 lb) 08/23/2019 5:09 PM SHAFT MECHANIC Height 175.3 cm (5' 9 ) 08/23/2019 5:09 PM SHAFT MECHANIC Body Mass Index 29.53 08/23/2019 5:09 PM SHAFT MECHANIC Plan of Treatment Health Maintenance Due Date [...]
--- OUTSIDE RECORDS SUMMARY | 2024-10-07 20:38 | XMS_ITS | Referral Summary ---
Author Organization [facility] Address [address] [place] [address] Care Team Providers Care Cross Country Coach Name Role Phone Tyree Lynne MD Primary Care Provider [phone] Allergies Active Allergy Reactions Criticality Noted Date [...] on file Legal Sex Male 12:[address] INTERPRETER Gender Identity Not on file Sexual Orientation [...] Plan of Treatment Not on file Insurance [facility] Member Subscriber Plan / Payer (Ef fective 2019-Present) Name:Wood Smiley Relation to Subscriber:Self Name:Wood Smiley Payer ID:[id number] (NAIC) Type: ALLIANCE Address: [address] [place] [id number] [facility] [employer] [place] [employer] [place] Care Teams Cross Country Coach Relationship Specialty Start Date End Date Tyree Lynne MD [address] [address] PCP - General 08/25/19
--- OUTSIDE RECORDS SUMMARY | 2024-10-07 20:38 | XMS_ITS | Clinical Summary ---
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
--- OUTSIDE RECORDS SUMMARY | 2024-10-07 20:38 | XMS_ITS | Encounter Summary ---
Author Organization [facility] Address [address] [place] [address] Phone Care Team Providers Care Otorhinolaryngologist Name Role Phone Tyree Lynne MD Primary Care Provider [phone] Encounter Details Date Type Department Care Team (Late st Contact Info) Description 08/25/2019 Ophth Exam [facility] Ophthalmology [address] [place] [address] 1st [place] [id number] Christophe Arthur MD [address] [place] [address] Social History Tobacco Use Types Packs/Day Years Used Date Smoking Tobacco: Every Day Cigarettes Smokeless Tobacco: Never Alcohol Use Standard Drinks/Week Comments Yes 12 (1 standard drink = 0.6 oz pu re alcohol) Sex and Gender Information Value Date Recorded Sex Assigned at Not on file Legal Sex Male 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
--- OUTSIDE RECORDS SUMMARY | 2024-10-07 20:38 | XMS_ITS | CONTINUITY OF CARE DOCUMENT ---
Author Name german tjana Address Unknown Organization [facility] Address [address] [place] [address] Phone [phone] Care Team Providers Care Arts Administrator Name Role Phone Montrell BANEGAS, Jennifer Unavailable BELLE JAMA MD Unavailable BELLE JAMA MD Unavailable INSURANCE PROVIDERS Payer name Policy type / Coverage type [place] red democrat ID [facility] [id number]
--- OUTSIDE RECORDS SUMMARY | 2024-10-07 20:38 | XMS_ITS | Patient Health Summary ---
Author Organization [facility] [employer] Address [address] [place] [address] Care Team Providers Care Immigration Specialist Name Role Phone Unavailable Primary Care Provider Unavailabl e Note from [facility],non-owned Affiliates and Associated Physician Practices is amultiple site organization consisting of ambulatory clinics and hospital sitesin [place], [place], [place] and [place]. This disclosure is being madepursuant to the Care Everywhere program and may not contain all information available regarding this patient. Last updated 18.[facility] [employer] Allergies No known active allergies Medications * [...] Comments Blood Pressure 156/88 08/23/2019 5:09 PM CROZE CUTTER HELPER Pulse 100 08/23/2019 5:09 PM CROZE CUTTER HELPER Temperature 36.9 ??C (98.4 ??F) 08/23/2019 5:09 PM CS T Respiratory Rate 16 08/23/2019 5:09 PM CROZE CUTTER HELPER Oxygen Saturation 98% 08/23/2019 5:09 PM CROZE CUTTER HELPER Inhaled Oxygen Concentration - - Weight 90.7 kg (200 lb) 08/23/2019 5:09 PM CROZE CUTTER HELPER Height 175.3 cm (5' 9 ) 08/23/2019 5:09 PM CROZE CUTTER HELPER Body Mass Index 29.53 08/23/2019 5:09 PM CROZE CUTTER HELPER
--- OUTSIDE RECORDS SUMMARY | 2024-10-07 20:38 | XMS_ITS | Referral Summary ---
Author Organization [facility] Address [address] [place] [address] Care Team Providers Care Typing Checker Name Role Phone Unavailable Primary Care Provider Unavailabl e Source Comments [facility],non-owned Affiliates and Associated Physician Practices is amultiple site organization consisting of ambulatory clinics and hospital sitesin [place], [place], [place] and [place]. This disclosure is being madepursuant to the Care Everywhere program and may not contain all information available regarding this patient. Last updated 18.[facility] [employer] Allergies No known active allergies Medications * [...] Comments Blood Pressure 156/88 08/23/2019 5:09 PM LIABILITY CLAIMS MANAGER Pulse 100 08/23/2019 5:09 PM LIABILITY CLAIMS MANAGER Temperature 36.9 ??C (98.4 ??F) 08/23/2019 5:09 PM CS T Respiratory Rate 16 08/23/2019 5:09 PM LIABILITY CLAIMS MANAGER Oxygen Saturation 98% 08/23/2019 5:09 PM LIABILITY CLAIMS MANAGER Inhaled Oxygen Concentration - - Weight 90.7 kg (200 lb) 08/23/2019 5:09 PM LIABILITY CLAIMS MANAGER Height 175.3 cm (5' 9 ) 08/23/2019 5:09 PM LIABILITY CLAIMS MANAGER Body Mass Index 29.53 08/23/2019 5:09 PM LIABILITY CLAIMS MANAGER Plan of Treatment Not on file
--- OUTSIDE RECORDS SUMMARY | 2024-10-07 20:38 | XMS_ITS | Clinical Summary ---
Author Organization [facility] Address [address] [place] [address] Phone Care Team Providers Care Government Auditor Name Role Phone Tyree Lynne MD Primary Care Provider [phone] Social History Tobacco Use Types Packs/Day Years Used Date Smoking Tobacco: Never Assessed Sex and Gender Information Value Date Recorded Sex Assigned at Not on file Legal Sex Male 3:36 PM CDT Gender Identity Not on file Sexual Orientation Not on file Plan of Treatment Health Maintenance Due Date Last Done Comments DTAP/TDAP/TD VACCINES (1 - Tdap) 1980 COLORECTAL SCREENING 2006 Colorectal Cancer Screening 2006 FIT-DNA Q 3 years 2006 FIT/FOBT Q 1 year 2006 Flex Sig/CT Colonography Q 5 years 2006 ZOSTER VACCINE (1 of 2) 2011 INFLUENZA VACCINE (#1) 2024 RSV VACCINE (60+ or ) (1 - 1-dose 75+ series) 2036 PNEUMOCOCCAL VACCINE 0-64 YEARS Aged Out No longer eligible based on patient's age to complete this topic Insurance BCBS BLUE ACCESS/TRUE BLUE PPO Care Teams Government Auditor Relationship Specialty Start Date End Date Tyree Lynne MD [address] [place] [phone] PCP - General Family Practice 06/17/13
--- OUTSIDE RECORDS SUMMARY | 2024-10-07 20:38 | XMS_ITS | Continuity of Care Document ---
Author Organization [facility] Address [address] [place] [address] [address] [place] [address] Phone Care Team Providers Care Jet Wiper Name Role Phone Benja Steinberg Unavailable Unavailable Advance Directives Directive Yes / No Effective Date File Name No Information Encounters Encounter Description Practice Location Reason(s) For Visit Diagnoses Date Provider Providers Copied on Encounter [facility], [address] [place] [address] [address], [place], [place], [id number], [place] tel:[phone] [facility] No Information Oct-0 9-200 0 Xandersy Edward. [address] , [address], [place], [address], [place]. tel:[phone] Family History Family Member Type Diagnosis Age At Onset No Information Payers Payer name Insurance type Covered democrat ID Authoriza tion(s) [employer] SOI CI [id number] Social History Type Description Quantity Date Captured [...]
[2024-10-07 21:00] LABS: Basophils Percent Auto 0.3 % (0.2-1.2); Hematocrit 43.3 % (42.0-52.0); Hemoglobin 14.9 g/dL (14.0-18.0); Immature Granulocyte Absolute 0.01 K/mm3 (0.00-0.031); Immature Granulocyte Percent A 0.2 % (0-0.5); Lymphocytes Absolute Auto 0.39 K/mm3 (0.9-3.2); Lymphocytes Percent Auto 5.9 % (18.3-44.2); Mean Corpuscular HGB Conc 34.4 g/dl (32-36); Mean Corpuscular Hemoglobin 31.5 pg (26-34); Mean Corpuscular Volume 91.5 fl (80-100); Mean Platelet Volume 8.9 fl (7.4-10.4); Monocytes Absolute Auto 0.2 K/mm3 (0.1-0.6); Neutrophils Percent Auto 90.6 % (45.5-73.1); Platelet Count Result 238 k/mm3 (150-375); Red Blood Count 4.73 M/mm3 (4.6-6.20); Red Cell Distribution Width 13.4 % (11.5-14.5); White Blood Count 6.6 K/mm3 (4.5-10.0)
[2024-10-07] MEDS: CYCLOBENZAPRINE HCL 5 MG TABLET PO (21:00)
[2024-10-07] MEDS: HYDROcodone/acetaminophen (*CRX) 5-325 MG TABLET 1 TAB PO (21:00)
[2024-10-07] MEDS: KETOROLAC (*BKC) 60 MG/2 ML VIAL IM (21:01)
[2024-10-07 21:06] LABS: Add Urine Microscopic? YES; Appearance Urine Clear (Clear); Bacteria Urine None Seen /hpf; Bilirubin Urine Negative (Negative); Blood Urine Negative (Negative); Color Urine Yellow (Yellow); Glucose Urine UA Negative (Negative); Ketones Urine Negative (Negative); Leukocyte Esterase Ur Negative LEU/UL (Negative); Nitrate Urine Negative (Negative); Non Pathogenic Casts 0-2; Protein Urine 2+ mg/dL (Negative); RBC Urine 0-2 /hpf (0-2); Squamous Epithelial Cell Urine None Seen /hpf (Few); Urobilinogen Urine 0.2 mg/dL (<2.0); WBC Urine 0-5 /hpf (0-3); pH Urine 6.5 (5.0-9.0)
[2024-10-07 21:09] LABS: Alanine Aminotransferase 27 U/L (6-50); Albumin Level 4.6 g/dL (3.5-5.1); Alkaline Phosphatase 106 U/L (38-126); Anion Gap 11 mmol/L (4-12); Aspartate Amino Transferase 30 U/L (17-59); Bilirubin,Total 0.6 mg/dL (0.2-1.3); Blood Urea Nitrogen 13 mg/dL (9-20); Calcium 9.5 mg/dL (8.4-10.2); Carbon Dioxide 23 mmol/L (22-30); Chloride 100 mmol/L (98-107); Estimated CRCL calculation 98 ml/min; Estimated Glomerular Filt Rate > 60; Glucose 126 mg/dL (65-110); Potassium 4.4 mmol/L (3.4-5.0); Sodium 134 mmol/L (137-145)
== END 2024-10-07 22:17 | disposition home or self-care (01) ==
PROVIDERS: Emergency Provider Emergency Medicine; PCP Family Medicine
DX: S39.012A Strain of muscle, fascia and tendon of lower back, initial encounter (principal); I10 Essential (primary) hypertension; E66.9 Obesity, unspecified; Z68.32 Body mass index [BMI] 32.0-32.9, adult; M19.042 Primary osteoarthritis, left hand; M19.041 Primary osteoarthritis, right hand; F41.9 Anxiety disorder, unspecified; F32.A Depression, unspecified; F17.210 Nicotine dependence, cigarettes, uncomplicated; Z86.0100 Personal history of colon polyps, unspecified; Z79.899 Other long term (current) drug therapy; X58.XXXA Exposure to other specified factors, initial encounter
CPT/HCPCS: 36415; 71046; 74176; 80053; 81001; 85025; 96372; 99284; A9270; J1885